=== PATIENT | female | born 1955 | race Caucasian/White ===

== ENCOUNTER → 2019-01-19 | Day surgery (SDC) | payer OTHER ==
[~2019-01-19] MED LIST: CLONAZEPAM0.5 MG PO; COLACE100 MG PO; CYMBALTA60 MG PO; DEPAKOTE ER500 MG PO; GALANTAMINE HBR24 MG PO; NAMENDA10 MG PO; NORVASC5 MG PO; PERCOCET 5-3251 EACH PO; ZOCOR20 MG PO
== END | disposition home or self-care (01) ==
LOC: ADM 01-12 10:30 → CIR.AMB 08:55
DX: K64.2 Third degree hemorrhoids (principal); K62.89 Other specified diseases of anus and rectum